=== PATIENT | female | born 1940 | race Caucasian/White ===

== ENCOUNTER → 2021-01-20 | Outpatient (CLI) | payer OTHER ==
[~2021-01-20] MED LIST: TESSALON PERLE100 MG PO; ZITHROMAX500 MG PO
[2021-01-20 17:04] LABS: BUN/CREATININE RATIO 24 (0-10)
== END ==
LOC: US 13:30
PROVIDERS: Internal Medicine Nephrology
DX: N17.9 Acute kidney failure, unspecified (principal); E78.5 Hyperlipidemia, unspecified; N26.1 Atrophy of kidney (terminal)
CPT/HCPCS: 36415; 80053; 82550; 82570; 84156; 89050

== ENCOUNTER → 2021-04-01 | Outpatient (CLI) | payer OTHER | LOC: EXRD 14:00 | DX: Z78.0 Asymptomatic menopausal state (principal); M85.88 Other specified disorders of bone density and structure, other site | CPT/HCPCS: 77080 ==